=== PATIENT | male | born 1970 | race Caucasian/White ===

== ENCOUNTER 2023-07-07 19:06 | Emergency (ER) | payer BC, OTHER ==
[~2023-07-07] VITALS: Ht 172.7 cm; Wt 79.4 kg
[2023-07-07] MEDS ORDERED: LOSA25 (20:34)
[2023-07-07] MEDS ORDERED: CELE100 (20:35)
[2023-07-07] MEDS ORDERED: Ventolin5 MG/1 ML (20:35)
[2023-07-07] MEDS ORDERED: FLUT1DIS2 (20:35)
[2023-07-07] MEDS ORDERED: OMEP20ER (20:36)
[2023-07-07] MEDS ORDERED: EPIPEN0.3 MG/0.3 IM (22:40)
[2023-07-07] MEDS ORDERED: METPRE4DP PO (22:40)
[2023-07-07 22:45] VITALS: BP 138/91
== END 2023-07-07 22:52 | disposition home or self-care (01) ==
LOC: ER 19:06
DX: T78.40XA Allergy, unspecified, initial encounter (principal); L50.9 Urticaria, unspecified; J45.909 Unspecified asthma, uncomplicated
CPT/HCPCS: 96374; 96375; 99282-25; J1200; J2930